=== PATIENT | female | born 1970 | race Two or more races ===

== ENCOUNTER 2020-01-17 07:31 | Emergency (ER) | payer OTHER ==
[~2020-01-17] VITALS: Ht 160 cm; Wt 68.0 kg
[2020-01-17] MEDS ORDERED: LOSARTAN POTASS50 MG PO (07:41)
[2020-01-17] MEDS ORDERED: NORVASC2.5 MG PO (07:41)
[2020-01-17] MEDS ORDERED: VITAMIN E1000 UNIT PO (07:41)
[2020-01-17] MEDS ORDERED: VOLTAREN-XR100 MG PO (14:48)
[2020-01-17] MEDS ORDERED: LEVSIN/SL0.125 MG SL (14:48)
[2020-01-17] MEDS ORDERED: PEPCID AC20 MG PO (14:48)
[2020-01-17] MEDS ORDERED: PERCOCET 5-3251 EACH PO (14:48)
== END 2020-01-17 15:04 | disposition home or self-care (01) ==
LOC: ER 07:31
DX: R10.11 Right upper quadrant pain (principal); Z03.818 Encounter for observation for suspected exposure to other biological agents ruled out

== ENCOUNTER 2020-02-15 08:25 | Outpatient (CLI) | payer OTHER ==
[~2020-02-15 08:25] MED LIST: LEVSIN/SL0.125 MG SL; LOSARTAN POTASS50 MG PO; NORVASC2.5 MG PO; PEPCID AC20 MG PO; PERCOCET 5-3251 EACH PO; VITAMIN E1000 UNIT PO; VOLTAREN-XR100 MG PO
== END 2020-02-15 08:36 | disposition home or self-care (01) ==
LOC: NUCLEAR 08:25
PROVIDERS: ATTEND Surgery
DX: K80.00 Calculus of gallbladder with acute cholecystitis without obstruction (principal)
CPT/HCPCS: 78227; A9537; J2805